=== PATIENT | male | born 1990 | race Caucasian/White ===

== ENCOUNTER 2021-12-28 17:30 | Emergency (ER) | payer SELFPAY ==
[2021-12-28] MEDS ORDERED: NAPROSYN500 MG PO (19:38)
== END 2021-12-28 19:45 | disposition home or self-care (01) ==
LOC: ER1 17:30
DX: S63.501A Unspecified sprain of right wrist, initial encounter (principal); J45.909 Unspecified asthma, uncomplicated; F17.200 Nicotine dependence, unspecified, uncomplicated; X58.XXXA Exposure to other specified factors, initial encounter; Y92.009 Unspecified place in unspecified non-institutional (private) residence as the place of occurrence of the external cause
CPT/HCPCS: 29125; 73110; 99283